=== PATIENT | female | born 1990 | race Two or more races ===

== ENCOUNTER 2017-11-01 21:10 | Emergency (ER) | payer OTHER ==
[~2017-11-01] VITALS: Ht 165.1 cm; Wt 72.6 kg
[2017-11-01] MEDS ORDERED: DIAZEPAM 2 MG TABLET PO ONE (21:30)
[2017-11-01] MEDS ORDERED: DIAZEPAM 10 MG/2 ML DISP.SYRIN IM ONE (21:30)
[2017-11-01] MEDS ORDERED: DIAZEPAM 2 MG TABLET ONE (21:33)
--- NOTE | 2017-11-01 22:35 | NUR ---
Patient discharged to home in stable conditon. Written and verbal after care instructions given. Patient verbalizes understanding of instructions. Pt ambulated out of ER in steady gait who will have friend drive her home.
[2017-11-01 22:36] VITALS: BP 124/76
== END 2017-11-01 22:37 | disposition home or self-care (01) ==
LOC: ER 21:12 → EDBD 21:12 → ER 22:37
DX: F41.0 Panic disorder [episodic paroxysmal anxiety] (principal); F41.9 Anxiety disorder, unspecified; Z90.49 Acquired absence of other specified parts of digestive tract; Z88.0 Allergy status to penicillin
CPT/HCPCS: 99284; A4663